=== PATIENT | male | born 1955 | race Caucasian/White ===

== ENCOUNTER → 2020-04-08 | Outpatient (CLI) | payer MEDICARE ==
[~2020-04-08] MED LIST: ASCO500T93 PO; ASPI-515 PO; BISO1TAB93 PO; CA C1TAB28 PO; CYAN50003 PO; ESCI10TA10 PO; GLUC15006 PO; LISI-167 PO; MULT-208 PO; NIAC-17 PO; OMEG1CAP23 PO; SODI1PAC12 NAS
== END | disposition home or self-care (01) ==
LOC: STAR 14:26
PROVIDERS: ATTEND Anesthesiology
DX: Z01.818 Encounter for other preprocedural examination (principal)
CPT/HCPCS: 93005

== ENCOUNTER → 2021-01-02 | Outpatient (CLI) | payer MEDICARE ==
[~2021-01-02] MED LIST changes: -ASPI-515 PO; +ASPI-963 PO
== END | disposition home or self-care (01) ==
LOC: CVU 07:24
PROVIDERS: ATTEND Registered Nurse
DX: Z13.6 Encounter for screening for cardiovascular disorders (principal); E78.00 Pure hypercholesterolemia, unspecified; I77.810 Thoracic aortic ectasia; I11.9 Hypertensive heart disease without heart failure; I08.8 Other rheumatic multiple valve diseases
CPT/HCPCS: 75571; 93306; 93356